=== PATIENT | female | born 1990 | race Caucasian/White ===

== ENCOUNTER 2020-12-12 16:37 | Emergency (ER) | payer OTHER ==
[~2020-12-12] VITALS: Ht 175.3 cm; Wt 84.4 kg
[~2020-12-12 16:37] MED LIST: KEFLEX500 MG PO; NAPROSYN500 MG PO; NORCO 5-325 TA1 EACH PO; PRENATAL TABLE1 EAC3 PO; ZOFRAN ODT4 MG PO
[2020-12-12] MEDS ORDERED: HYDROXYZINE HCL25 MG PO (17:11)
[2020-12-12] MEDS ORDERED: FLUOXETINE HCL20 MG PO (17:11)
[2020-12-12] MEDS ORDERED: PRILOSEC OTC20 MG PO (19:26)
[2020-12-12] MEDS ORDERED: ZOFRAN4 MG PO (19:26)
[2020-12-12] MEDS ORDERED: BACTRIM DS TAB1 EACH PO (19:26)
== END 2020-12-12 20:08 | disposition home or self-care (01) ==
LOC: ED 16:37
DX: K21.9 Gastro-esophageal reflux disease without esophagitis (principal); N39.0 Urinary tract infection, site not specified; E87.6 Hypokalemia; Z79.899 Other long term (current) drug therapy
CPT/HCPCS: 80053; 81001; 83690; 83735; 84703; 85025; 96374; 96375; 99284-25; J2405; J2765; J7030

== ENCOUNTER 2022-05-23 06:03 | Emergency (ER) | payer OTHER ==
[~2022-05-23] VITALS: Ht 175.3 cm; Wt 66.0 kg
[~2022-05-23 06:03] MED LIST changes: +BACTRIM DS TAB1 EACH PO; +FLUOXETINE HCL20 MG PO; +HYDROXYZINE HCL25 MG PO; +PRILOSEC OTC20 MG PO; +ZOFRAN4 MG PO
[2022-05-23] MEDS ORDERED: ONDANSETRON ODT8 MG PO (07:49)
== END 2022-05-23 08:04 | disposition home or self-care (01) ==
LOC: ED 06:03
DX: R11.2 Nausea with vomiting, unspecified (principal); B34.9 Viral infection, unspecified; Z79.899 Other long term (current) drug therapy
CPT/HCPCS: 36415; 71045; 80053; 84703; 85025; 87502; 96374; 96375; 99284-25; J2405; J7121; U0003

== ENCOUNTER 2022-07-03 00:07 | Emergency (ER) | payer OTHER ==
[~2022-07-03] VITALS: Ht 175.3 cm; Wt 68.7 kg
[~2022-07-03 00:07] MED LIST changes: +ONDANSETRON ODT8 MG PO
[2022-07-03] MEDS ORDERED: ONDANSETRON ODT8 MG PO (02:06)
== END 2022-07-03 02:30 | disposition home or self-care (01) ==
LOC: ED 00:07
DX: R10.11 Right upper quadrant pain (principal)
CPT/HCPCS: 36415; 74177; 80053; 84703; 85025; 96375; 99284-25; A9270; J2270; J2405; J2550; J7121; Q9967

== ENCOUNTER 2023-12-06 06:14 | Emergency (ER) | payer OTHER ==
[~2023-12-06] VITALS: Ht 175.3 cm; Wt 80.8 kg
[~2023-12-06 06:14] MED LIST changes: +PRAZOSIN HCL1 MG PO; +PROTONIX40 MG PO
[2023-12-06] MEDS ORDERED: TRAZODONE HCL50 MG PO (06:25)
[2023-12-06] MEDS ORDERED: droPERidol 5 MG/2 ML VIAL IV ONE (06:30)
[2023-12-06] MEDS ORDERED: LACTATED RINGER'S 1,000 ML IV ONE (06:30)
[2023-12-06] MEDS ORDERED: FAMOTIDINE 20 MG/ 2 ML VIAL IV ONE (06:30)
[2023-12-06 06:32] LABS: BASOPHILS 0.4 % (0-2); EOSINOPHILS 0.2 % (0-6); HEMOGLOBIN 15.3 g/dL (12.0-18.0); LYMPHOCYTES 17.2 % (24-44); MCH 30.5 (27-36); MCV 89.8 fl (81-99); MONOCYTES 2.6 % (0-12); NEUTROPHILS 79.6 % (39-80); PLATELET COUNT 405 K/uL (140-440); RDW 13.3 (10.5-15.0)
[2023-12-06] MEDS ORDERED: KETOROLAC TROMETHAMINE 30 MG/ML VIAL IV ONE (06:45)
[2023-12-06 06:51] LABS: ALBUMIN 3.8 g/dL (3.4-5.0); ALBUMIN/GLOBULIN RATIO 1.03 (1.1-2.4); ANION GAP 21.7 (7-21); BILIRUBIN, TOTAL 0.9 ng/dL (0.2-1.0); BUN/CREATININE RATIO 13.88 (6.0-28.6); CALCIUM 8.7 mg/dL (8.5-10.1); CREATININE, SERUM 1.08 mg/dL (0.55-1.02); MAGNESIUM 1.9 mg/dL (1.8-2.4); POTASSIUM 3.7 mmol/L (3.5-5.1); PROTEIN, TOTAL 7.5 g/dL (6.4-8.2)
[2023-12-06 07:07] LABS: INR 1.01 (0.80-1.30); PROTIME 12.9 Sec (11.2-14.2)
[2023-12-06 07:10] LABS: BILIRUBIN, URINE NEGATIVE (negative); BLOOD/HGB, URINE NEGATIVE (Negative); KETONE, URINE NEGATIVE (Negative); LEUK ESTERASE, URINE NEGATIVE (negative); NITRITE, URINE NEGATIVE (negative)
[2023-12-06 07:31] LABS: AMPHETAMINES, URINE NEGATIVE (NEGATIVE); BARBITURATES, URINE NEGATIVE (NEGATIVE); BENZODIAZEPINE, URINE NEGATIVE (NEGATIVE); BUPRENORPHINE, URINE NEGATIVE (NEGATIVE); CANNABINOID, URINE POSITIVE (NEGATIVE); COCAINE, URINE NEGATIVE (NEGATIVE); ECSTASY, URINE NEGATIVE (NEGATIVE); FENTANYL, URINE NEGATIVE (NEGATIVE); METHADONE, URINE NEGATIVE (NEGATIVE); OPIATES, URINE NEGATIVE (NEGATIVE); OXYCODONE, URINE NEGATIVE (NEGATIVE); PHENCYCLIDINE, URINE NEGATIVE (NEGATIVE)
[2023-12-06 09:03] VITALS: BP 127/74
== END 2023-12-06 09:04 | disposition home or self-care (01) ==
LOC: ED 06:14
PROVIDERS: Internal Medicine
DX: R10.13 Epigastric pain (principal); R10.11 Right upper quadrant pain; R11.2 Nausea with vomiting, unspecified; G89.29 Other chronic pain; D72.829 Elevated white blood cell count, unspecified; F32.A Depression, unspecified; Z79.899 Other long term (current) drug therapy
CPT/HCPCS: 36415; 74177; 80053; 80307; 81003; 83690; 83735; 84703; 85025; 85610; 96361; 96375; 99284-25; J1790; J1885; J7121; Q9967

== ENCOUNTER 2024-03-10 11:04 | Emergency (ER) | payer OTHER ==
[~2024-03-10] VITALS: Ht 175.3 cm; Wt 79.4 kg
[~2024-03-10 11:04] MED LIST changes: +TRAZODONE HCL50 MG PO
[2024-03-10] MEDS ORDERED: AMOXICILLIN/CLAVULANATE K 875 MG TAB PO ONE (11:30)
[2024-03-10] MEDS ORDERED: LIDOCAINE/RACEPINEP/TETRACAINE 3 ML SYR TOP ONE (11:30)
[2024-03-10] MEDS ORDERED: AMOX TR-K CLV1 EAC1 PO (12:51)
[2024-03-10 13:04] VITALS: BP 132/101
== END 2024-03-10 13:05 | disposition home or self-care (01) ==
LOC: ED 11:04
DX: S01.25XA Open bite of nose, initial encounter (principal); W54.0XXA Bitten by dog, initial encounter; Z79.899 Other long term (current) drug therapy
CPT/HCPCS: 12011; 99283-25

== ENCOUNTER 2024-07-25 17:16 | Emergency (ER) | payer OTHER ==
[~2024-07-25] VITALS: Ht 175.3 cm; Wt 78.9 kg
[~2024-07-25 17:16] MED LIST changes: +AMOX TR-K CLV1 EAC1 PO
[2024-07-25 17:45] LABS: BASOPHILS 0.6 % (0-2); EOSINOPHILS 0.4 % (0-6); HEMATOCRIT 46.6 % (35.0-50.0); HEMOGLOBIN 16.6 g/dL (12.0-18.0); MCH 33.1 (27-36); MCHC 35.6 g/dl (30-36); MONOCYTES 9.3 % (0-12); NEUTROPHILS 64.7 % (39-80); PLATELET COUNT 288 K/uL (140-440); RBC 5.02 M/ul (4.3-5.7); RDW 12.6 (10.5-15.0)
[2024-07-25 18:02] LABS: ALBUMIN 4.6 g/dL (3.4-5.0); ANION GAP 24.3 (7-21); BILIRUBIN, TOTAL 1.9 ng/dL (0.2-1.0); BUN/CREATININE RATIO 14.13 (6.0-28.6); CALCIUM 10.1 mg/dL (8.5-10.1); CREATININE, SERUM 0.92 mg/dL (0.55-1.02); MAGNESIUM 2.3 mg/dL (1.8-2.4); POTASSIUM 3.3 mmol/L (3.5-5.1); PROTEIN, TOTAL 9.2 g/dL (6.4-8.2)
[2024-07-25] MEDS ORDERED: LORazepam 2 MG/ML VIAL IV PRN (18:15)
[2024-07-25] MEDS ORDERED: SODIUM CHLORIDE 0.9% 1,000 ML IV ONE (18:15)
[2024-07-25] MEDS ORDERED: NALTREXONE HCL50 MG PO (19:48)
[2024-07-25] MEDS ORDERED: CHLORDIAZEPOXID25 MG PO (19:48)
[2024-07-25] MEDS ORDERED: LORazepam 1 MG HOME.PACK PO ONE (20:00)
[2024-07-25 20:10] VITALS: BP 143/107
--- NOTE | 2024-07-26 10:17 | EKG ---
[facility] [address] [facility] [place], [place] [address] Signed Sinus tachycardia Otherwise normal ECG No previous ECGs available Confirmed by Bertha Jennings DO ([id number]) on 07/26/2024 10:17:36 AM Electronically Signed By: BERTHA JENNINGS DO 07/26/24 1017 PATIENT NAME: JENNY DAWKINS Electrocardiogram DATE OF : 88 PHYSICIAN: BERTHA JENNINGS DO REPORT #: [id number] REPORT IS CONFIDENTIAL AND NOT TO BE RELEASED WITHOUT AUTHORIZATION
== END 2024-07-25 20:17 | disposition home or self-care (01) ==
LOC: ED 17:16
PROVIDERS: Emergency Medicine
DX: F10.139 Alcohol abuse with withdrawal, unspecified (principal); Z79.899 Other long term (current) drug therapy
CPT/HCPCS: 36415; 80053; 80307; 83735; 84484; 85025; 93005; 93010; 96374; 99285-25; G0480; J2060; J7030

== ENCOUNTER 2025-03-12 08:12 | Inpatient (IN) | payer OTHER ==
[2025-03-12] VITALS (10 sets, daily range): BP systolic 103–137; BP diastolic 87–99
[~2025-03-12] VITALS: Ht 175.3 cm; Wt 83.0 kg
[~2025-03-12 08:12] MED LIST changes: +CHLORDIAZEPOXID25 MG PO; +NALTREXONE HCL50 MG PO
[2025-03-12] MEDS ORDERED: MULTIVITAMINS THERAPEUTIC 1 EA TAB PO ONE (08:30)
[2025-03-12] MEDS ORDERED: LORazepam 2 MG/ML VIAL IV ONE (08:30)
[2025-03-12] MEDS ORDERED: SODIUM CHLORIDE 0.9% 1,000 ML IV ONE ×2 (08:30→10:15)
[2025-03-12 08:31] LABS: BASOPHILS 0.4 % (0.1-1.2); EOSINOPHILS 0.4 % (0.7-5.8); LYMPHOCYTES 20.2 % (19.3-51.7); MCH 32.3 PG (25.6-32.2); MCHC 36.4 g/dL (32.2-35.5); MCV 88.7 fL (79.4-94.8); MONOCYTES 8.9 % (4.7-12.5); NEUTROPHILS 69.8 % (34.0-71.1); RBC 5.39 M/uL (3.93-5.22)
[2025-03-12 08:49] LABS: ALT (SGPT) 64 U/L (14-59); AST (SGOT) 50 U/L (15-37); GLOMERULAR FILTRATION RATE,EST 71 mL/min (>60); PROTEIN, TOTAL 9.3 g/dL (6.4-8.2); UREA NITROGEN 24 mg/dL (7-18)
[2025-03-12] MEDS ORDERED: SODIUM CHLORIDE 0.45% 1,000 ML IV SCH (11:15)
[2025-03-12] MEDS ORDERED: CHLORDIAZEPOXIDE 25 MG CAP PO PRN (11:30)
[2025-03-12 11:37] LABS: BLOOD/HGB, URINE MODERATE (Negative); KETONE, URINE >=80 (Negative); LEUK ESTERASE, URINE TRACE (negative); NITRITE, URINE POSITIVE (negative)
[2025-03-12 11:44] LABS: BACTERIA, URINE 4+ /hpf (negative); CASTS, URINE NONE SEEN \\lpf; CRYSTALS, URINE NONE SEEN (0-1+); EPITHELIAL CELLS, URINE SQUAMOUS 1+ /lpf (0-1+); REFLEX CULTURE, URINE Yes (No)
[2025-03-12] MEDS ORDERED: PHARMACY RENAL DOSE ADJUSTMENT 1 DOSE MISC PO SCH (12:00)
--- NOTE | 2025-03-12 13:00 | NUR ---
PT ARRIVED TO FLOOR FROM ED VIA STRETCHER BY ED STAFF. PT ABLE TO STAND AND GET INTO BED INDEPENDENTLY. IV FLUIDS INFUSING. PT NEEDED TO USE COMMODE IMMEDIATELY UPON ARRIVING TO FLOOR, ASSISTED TO COMMODE. ALL PT CARE NEEDS MET AT THIS TIME, DENIES ANY NEEDS, CALL LIGHT WITHIN REACH.
[2025-03-12] MEDS ORDERED: HYDROXYZINE HCL50 MG PO (13:36)
[2025-03-12] MEDS ORDERED: NALTREXONE HCL50 MG PO (13:36)
[2025-03-12] MEDS ORDERED: PIPERACILLIN/TAZOBACTAM 4.5 GM in DEXTROSE 5% 100 ML IV SCH (14:00)
--- NOTE | 2025-03-12 14:26 | NUR ---
UR CLINICAL REVIEW: ELLIE-PER MCG REVIEW MEETS INPT FOR ABD PAIN/POSS PANCREATITIS WITH NEED FOR IV HYDRATION, SURGICAL CONSULT AND MONITORING FOR ALCOHOL WITHDRAWL [facility]O INPT 03/12/25 @ 111 ORDER MATCHES REG CLINICALS FAXED TO [facility] FOR AUTH REVIEW 03/13/25 DC SUMMARY
--- NOTE | 2025-03-12 15:00 | NUR ---
TO CHLORAHEXADINE WIPE DOWN COMPLETE. LINEN/GOWN CHANGED. PT BACK IN BED, DENIES ANY NEEDS. PATIENT REPORTS 2/10 ABDOMINAL PAIN. PT SCORE FOR CIWA WAS 1, NO ATIVAN NEEDED. PT WAS STEADY ON FEET WHEN GETTING UP FOR WIPE DOWN. IVF/IV ABX INFUSING ORDERED. ALL PT CARE NEEDS MET AT THIS TIME. CALL LIGHT WITHIN REACH.
--- NOTE | 2025-03-12 15:10 | NUR ---
PATIENT ALERT AND ORIENTED IN BED. STATES SHE LIVES IN HOUSE. HAS NO DME. PATIENT IS ABLE TO DRIVE AT BASELINE. STATES SHE IS ABLE TO AFFORD UTILITIES AND FOOD/MEDICATIONS WITHOUT AN ISSUE. PATIENT HAS A HISTORY OF ALCOHOL ABUSE AND WAS SUCCESSFULLY TREATED IN INPATIENT SETTING AND ABLE TO MAINTAIN SOBRIETY FOR 2.5 YEARS. STATES SHE IS OPEN TO [facility] COMING INTO FACILITY TO SPEAK WITH HER REGARDING TREATMENT OPTIONS. CALLED [facility] AND THEY CAN BE TO FACILITY TO SEE PATIENT WITHIN 30 MINUTES. [facility] CARD PROVIDED TO PATIENT, INFORMED HER A PEER WILL BE TO FACILITY TO SEE HER. NO OTHER CM NEEDS AT THIS TIME.
[2025-03-12] MEDS ORDERED: SEVOFLURANE 250 ML BTL INH ONE ×2 (15:19→15:26)
--- NOTE | 2025-03-12 17:49 | NUR ---
medications reconciled with pharmacy records
--- NOTE | 2025-03-12 18:09 | NUR ---
PT INFORMED SURGERY SHOULD BE UP SHORTLY TO GET HER. FAMILY PRESENT IN THE ROOM. IV SALINE LOCKED. LR HUNG FOR SURGERY. PT DENIES PAIN. ALL PT CARE NEEDS MET, CALL LIGHT WITHIN REACH. OFFERED BATHROOM, PT DECLINED NEED
[2025-03-12] MEDS ORDERED: MIDAZOLAM HCL 2 MG/2 ML VIAL ONE (18:24)
[2025-03-12] MEDS ORDERED: DEXAMETHASONE SOD PHOS 4 MG/ML VIAL ONE (18:24)
[2025-03-12] MEDS ORDERED: ACETAMINOPHEN 1,000 MG/100 ML VIAL ONE (18:24)
[2025-03-12] MEDS ORDERED: LIDOCAINE HCL 2% 5 ML SDV ONE (18:24)
[2025-03-12] MEDS ORDERED: SUCCINYLCHOLINE IN 0.9% NACL 200 MG/10 ML SYRINGE ONE (18:24)
[2025-03-12] MEDS ORDERED: SUGAMMADEX SODIUM 200 MG/2 ML ML ONE (18:24)
[2025-03-12] MEDS ORDERED: KETOROLAC TROMETHAMINE 30 MG/ML VIAL ONE (18:24)
[2025-03-12] MEDS ORDERED: ROCURONIUM BROMIDE 50 MG/5 ML SYR ONE (18:24)
[2025-03-12] MEDS ORDERED: fentaNYL citrate 100 MCG/2 ML VIAL ONE (18:25)
[2025-03-12] MEDS ORDERED: LIDOCAINE HCL 2% 20 MG/ML VIAL INJ ONE (18:25)
--- NOTE | 2025-03-12 18:27 | NUR ---
PER SKIP, WOULD LIKE REPEAT CHEM PANEL. CALL TO MD, TELEPHONE FOR BMP. ORDERS INPUT STAT THEY ARE HERE TO GET PATIENT.
--- NOTE | 2025-03-12 18:41 | NUR ---
PT LEFT FLOOR WITH SURGERY TEAM VIA BED.
[2025-03-12 18:47] LABS: GLOMERULAR FILTRATION RATE,EST 110.0 mL/min (>60); UREA NITROGEN 16.0 mg/dL (7-18)
[2025-03-12] MEDS ORDERED: MULTIVITAMINS THERAPEUTIC 1 EA TAB PO SCH (18:50)
[2025-03-12] MEDS ORDERED: POTASSIUM CHLORIDE 40 MEQ,LIDOCAINE HCL 1% 40 MG in DEXTROSE 5% 250 ML IV ONE (19:15)
[2025-03-12] MEDS ORDERED: POTASSIUM CHLORIDE 10 MEQ/100 ML BAG IV SCH (19:30)
[2025-03-12] MEDS ORDERED: POTASSIUM CHLORIDE 40 MEQ in DEXTROSE 5% 250 ML IV ONE (19:30)
--- NOTE | 2025-03-12 19:30 | NUR ---
handoff report received from RISHI Murphy. patient off unit in surgery at this time.
[2025-03-12] MEDS ORDERED: HYDROmorphone HCL 1 MG/ML SYR IV PRN (19:45)
[2025-03-12] MEDS ORDERED: NALOXONE HCL 0.4 MG SYR IV PRN (19:45)
[2025-03-12] MEDS ORDERED: fentaNYL citrate 50 MCG/ML SDV IV PRN (19:45)
[2025-03-12] MEDS ORDERED: IBLOOD GLUCOSE TEST STRIP 1 EA TEST VI PRN (19:45)
[2025-03-12] MEDS ORDERED: PROCHLORPERAZINE EDISYLATE 10 MG/2 ML VIAL IV PRN (19:45)
--- NOTE | 2025-03-12 20:37 | NUR ---
handoff report received from MOBILE BATTERY TECHNICIAN Earl. Patient awake in bed. no signs of acute distress noted at this time. patient family remains at bedside. This RN and RISHI Rincon remain in room.
[2025-03-12] MEDS ORDERED: HYDROCODONE/ACETA 5/325 TAB PO PRN (20:45)
[2025-03-12] MEDS ORDERED: KETOROLAC TROMETHAMINE 15 MG/ML VIAL IV PRN (20:45)
[2025-03-12] MEDS ORDERED: MORPHINE SULFATE 4 MG/ML VIAL IV PRN (20:45)
--- NOTE | 2025-03-12 20:53 | NUR ---
03/12/252052 Maira Evans 2013- PT TRANSFERED FROM OR TO CCU ROOM 126. BEDSIDE REPORT RECIEVED FROM AYO NUNEZ. VITAL SIGNS OBTAINED. PT BED IS LOWERED. SURGICAL SITES ARE CDI. PT HAS AN ORAL AIRWAY IN PLACE WITH 6L OF O2 VIA MASK. PT IS NONREACTIVE TO VERBAL AND TACTILE STIMULI. 2014- ORAL AIRWAY REMOVED. 6L OF O2 VIA MASK LEFT IN PLACE. PT RESPONDS "YES" TO QUESTIONS AND IS ABLE TO FOLLOW BASIC COMMANDS TO OPEN HER MOUTH FOR ORAL AIRWAY REMOVAL. 2019- PT IS DROWSY AND FALLS ASLEEP EASILY. SHE WAKES TO VERBAL STIMULI AND DENIES PAIN AND NAUSEA. PT RESTING WITH EYES CLOSED, WITH NO APPARENT DISTRESS NOTED. 2022- PT WAKES AND IS TALKING WITH FAMILY AT THE BEDSIDE. 2025- O2 REMOVED AT THIS TIME. PT IS ABLE TO MAINTAIN O2 SATS ABOVE 95%. PT RESTING WITH EYES CLOSED. 2031- PT BEGINS COUGHING. HEAD OF BED RAISED. PT EDUCATED ABOUT SPLINTING WITH A PILLOW AND DOES DEMONSTRATES BACK TO RN'S HOW SHE WILL DO THAT. PT REPORTS 2/10 PAIN AFTER COUGHING. 2036- BEDSIDE REPORT GIVEN TO RISHI BECK AND RISHI STOCKTON. ALL QUESTIONS AND CONCERNS ANSWERED. SURGICAL SITES ASSESSED TOGETHER AND ARE CDI.
[2025-03-12] MEDS ORDERED: HEParin SOD (PORCINE) 5,000 UNIT/ML SDV SUB-Q SCH (21:00)
[2025-03-12] MEDS ORDERED: FERROUS SULFATE 220 MG/5 ML ML PO SCH (21:00)
--- NOTE | 2025-03-12 21:00 | NUR ---
PATIENT ASSESSMENT COMPLETE. PATIENT SITTING UP IN BED AT THIS TIME. PATIENT ALERT AND ORIENTED. PATIENT ON ROOM AIR, LUNG SOUNDS CLEAR, RESPIRATIONS EVEN AND UNLABORED. HR 70'S-80'S, NSR. X3 LAPRASCOPIC SITES NOTED TO THE ABDOMEN. ALL SURGICAL SITES COVERED WITH DERMABOND AND CLOSED W/ SUTURES AND OPEN TO AIR. ABDOMINAL TENDERNESS NOTED, BOWEL SOUNDS ACTIVE IN ALL QUADRANTS. PATIENT DENIES NAUSEA AT THIS TIME. PATIENT RATES PAIN 1/10 IN THE ABOMEN. PATIENT DUE TO VOID. PATIENT ABLE TO MOVE ALL EXTREMITIES W/O DIFFICULTY. PATIENT DENIES FEELING ANXIOUS AT THIS TIME. VITAL SIGNS STABLE. SCDS IN PLACE. FAMILY REMAINS AT BEDSIDE.
--- NOTE | 2025-03-12 22:15 | NUR ---
IN PATIENT ROOM. PATIENT C/O ABDOMINAL PAIN AND NAUSEA. PATIENT MEDICATED W/ PRN PAIN MEDICATION AND PRN NAUSEA MEDICATION PER EMAR. VITAL SIGNS STABLE. THIS RN AND EBONY RN REMAIN IN ROOM AT THIS TIME.
--- NOTE | 2025-03-12 22:35 | NUR ---
PATIENT ASSISTED UP TO THE BATHROOM BY THIS RN AND RISHI BECK. PATIENT VOIDED WELL W/O DIFFICULTY. PATIENT C/O DIZZINESS UPON RETURN TO BED, PATIENT BACK IN BED AND STATES DIZZINESS HAS SUBSIDED AT THIS TIME. WHILE PATIENT AMBULATED TO BATHROOM, HR WAS NOTED TO GET HIGH 140. HR BACK TO 90'S-100'S WHILE IN BED. PATIENT DENIES ANY OTHER NEEDS AT THIS TIME. VITAL SIGNS STABLE. CALL LIGHT IN REACH.
--- NOTE | 2025-03-12 23:01 | NUR ---
NEW IV POTASSIUM BAG ADMINISTERED PER EMAR. PATIENT RESTING IN BED. RESPIRATIONS EVEN AND UNLABORED. NO EVIDENCE OF ACUTE DISTRESS. VITAL SIGNS STABLE. CALL LIGHT IN REACH
[2025-03-13] VITALS (24 sets, daily range): BP systolic 83–132; BP diastolic 55–99
--- NOTE | 2025-03-13 00:18 | NUR ---
POTASSIUM REPLACEMENT COMPLETED PER EMAR. LAB IN ROOM FOR POTASSIUM REDRAW.
--- NOTE | 2025-03-13 01:08 | NUR ---
PATIENT RESTING IN BED W/ EYES CLOSED. RR EVEN AND UNLABORED. VITAL SIGNS STABLE. NO EVIDENCE OF ACUTE DISTRESS. CALL LIGHT IN REACH.
--- NOTE | 2025-03-13 01:47 | NUR ---
IV ABX COMPLETE PER EMAR. PT ASSISTED UP TO BATHROOM, SBA. PATIENT DENIES FEELING LIGHTHEADED OR DIZZY. HR NOTED TO GET UP TO 165 W/ AMBULATION. PATIENT BACK TO BED. PATIENT C/O PAIN 08/19, PATIENT REQUESTING PAIN MEDICATION AT THIS TIME. PATIENT DENIES NAUSEA. VITAL SIGN STABLE. WARM BLANKET PROVIDED. CALL LIGHT IN REACH.
--- NOTE | 2025-03-13 02:30 | NUR ---
PATIENT GIVEN PRN PAIN MEDICATION PER EMAR. NO FURTHER NEEDS. CALL LIGHT IN REACH
--- NOTE | 2025-03-13 03:24 | NUR ---
PATIENT RESTING IN BED W/ EYES CLOSED. RR EVEN AND UNLABORED. NO EVIDENCE OF ACUTE DISTRESS. IVF RUNNING PER EMAR. VITAL SIGNS STABLE. CALL LIGHT IN REACH
--- NOTE | 2025-03-13 04:23 | NUR ---
IN PATIENT ROOM. PATIENT C/O 01/16 ABDOMINAL PAIN. PRN PAIN MEDICATION ADMINISTERED PER EMAR. PATIENT PROVIDED WATER AND JELLO. PATIENT REPOSITIONED IN BED. IVF RUNNING PER EMAR. PATIENT DENIES FURTHER NEEDS. VITAL SIGNS STABLE, CALL LIGHT IN REACH.
[2025-03-13 05:31] LABS: BASOPHILS 0.3 % (0.1-1.2); EOSINOPHILS 0 % (0.7-5.8); LYMPHOCYTES 11.2 % (19.3-51.7); MCH 32.8 PG (25.6-32.2); MCHC 35.4 g/dL (32.2-35.5); MCV 92.7 fL (79.4-94.8); MONOCYTES 6.5 % (4.7-12.5); NEUTROPHILS 81.5 % (34.0-71.1); RBC 3.02 M/uL (3.93-5.22)
[2025-03-13 05:43] LABS: GLOMERULAR FILTRATION RATE,EST 118 mL/min (>60); UREA NITROGEN 13 mg/dL (7-18)
[2025-03-13 06:00] LABS: INR 1.07 (0.80-1.30); PROTIME 13.2 Sec (11.2-14.2)
[2025-03-13] MEDS ORDERED: LACTATED RINGER'S 1,000 ML IV SCH (06:00)
--- NOTE | 2025-03-13 06:00 | NUR ---
0525: patient complains of feeling nauseous. patient noted to be pale and diaphoretic. patient HR 110-140's; ST. patient blood pressure 95/62 (73). patient abdomen noted to be more distended. lap sites x3 noted to have purplish discoloration around insertion sites. patient less responsive, does not respond to verbal stimuli. patient eyes open but glazed over. 0527: rapid response called. ER doctor, senior housekeeper, float RN, ER nurse, lab, CCU charge nurse at bedside. EKG obtained. ER doctor did beside abd ultrasound; noted significant for free fluid in RLQ. 0529: Dr Cartwright called and updated on patient. 1L LR fluid bolus ordered. 0535: Dr Mello updated. no new orders 0545: Dr Mello called by Sonia and provided update. new order received for Abd/pelvic CT. 0550: patient off unit and taken to CT with this RN and Christina RN. 0600: patient back on unit in room 126. this RN and Christina RN remain at bedside.
--- NOTE | 2025-03-13 06:06 | NUR ---
DR WALTON AT PATIENT BEDSIDE.
--- NOTE | 2025-03-13 06:32 | NUR ---
ELIDIA CALLED TO PROVIDE UPDATE ON PATIENT'S IMAGING REPORT. ORDERS RECEIVED FOR TXA. VERIFIED PATIENT WAS TYPE AND SCREEN FOR BLOOD PRODUCTS; NOT TO TRANSFUSE AT THIS TIME.
[2025-03-13 06:37] LABS: ABO B; ANTIBODY SCREEN NEGATIVE; RH POSITIVE
[2025-03-13] MEDS ORDERED: TRANEXAMIC ACID IN NACL,ISO-OS 1,000 MG/100 ML PIGGYBACK IV ONE (06:45)
[2025-03-13 07:04] LABS: ABO B; RH POSITIVE
[2025-03-13 07:04] LABS: IS CROSSMATCH COMPATIBLE
--- NOTE | 2025-03-13 07:12 | NUR ---
PT CALL LIGHT ANSWERED. PT C/O NAUSEA. PATIENT VOMITIED 100 ML OF DARK BROWN EMESIS. THIS RN AND RISHI FOLEY IN ROOM. PRN ZOFRAN ADMINISTERED PER EMAR. PATIENT SITTING UP IN BED. ORAL SWAB PROVIDED. MOTHER AT BEDSIDE. PATIENT DENIES FURTHER NEEDS. THIS RN AND RISHI FOLEY REMAIN IN ROOM.
--- NOTE | 2025-03-13 07:32 | NUR ---
PATIENT REMAINS NAUSEAOUS WITH ACTIVE DRY HEAVING; DISCUSSED WITH . ADDITIONAL PRN ORDERS RECEIVED.
[2025-03-13] MEDS ORDERED: PROCHLORPERAZINE EDISYLATE 10 MG/2 ML VIAL IV PRN (07:45)
[2025-03-13 08:10] LABS: BASOPHILS 0.2 % (0.1-1.2); EOSINOPHILS 0 % (0.7-5.8); LYMPHOCYTES 9.8 % (19.3-51.7); MCH 32.8 PG (25.6-32.2); MCHC 35.6 g/dL (32.2-35.5); MCV 92.2 fL (79.4-94.8); MONOCYTES 6.3 % (4.7-12.5); NEUTROPHILS 83.2 % (34.0-71.1); RBC 2.56 M/uL (3.93-5.22)
--- NOTE | 2025-03-13 08:10 | NUR ---
IN PATIENT'S ROOM FOR AM ASSESSMENT. PATIENT AWAKENS EASILY AND IS CALM. HR IN THE 80-90s AND BP IN THE 120s/80s. ABD ASSESSED AND BRUISING NOTED AROUND LAP SITES. PT RATES PAIN 3/10 IN RIGHT SIDE OF ABD, AND WORSE WITH A DEEP BREATH. LUNGS CTA ON ROOM AIR. PLAN DISCUSSED WITH PATIENT. BLOOD DRAWN FROM IV SITE LEFT AC FOR REPEAT CBC. PT TO RECEIVE ONE UNIT OF PRBCs PER DR. WALTON WHO IS NOW AT BEDSIDE. PT ALSO TO GET SOME POTASSIUM REPLACEMENT. CIWA 6. CONTINUE TO MONITOR.
[2025-03-13] MEDS ORDERED: SODIUM CHLORIDE 0.9% 1,000 ML IV SCH (08:15)
[2025-03-13 08:27] LABS: ALT (SGPT) 29.0 U/L (14-59); AST (SGOT) 30.0 U/L (15-37); GLOMERULAR FILTRATION RATE,EST 118.0 mL/min (>60); PROTEIN, TOTAL 4.8 g/dL (6.4-8.2); UREA NITROGEN 13.0 mg/dL (7-18)
--- NOTE | 2025-03-13 08:39 | NUR ---
1 UNIT OF PRBCs STARTED AT 0821 INTO LEFT AC SITE AT 120 ML/HR FOR THE FIRST 30 ML(15 MINS). RATE WAS THEN INCREASED TO 175 ML/HR AND PATIENT IS TOLERATING THIS WELL THUS FAR. IVF WERE CHANGED FROM 1/2 NS TO NS AT 125 ML/HR. IV ZOSYN INFUSING. PT TO RECEIVE 40 MEQ OF POTASSIUM. PT ASKING FOR PAIN MEDICATION.
[2025-03-13] MEDS ORDERED: LIDOCAINE HCL 1% 30 ML SDV ONE ×2 (08:58→09:18)
[2025-03-13] MEDS ORDERED: BUPIVACAINE HCL 0.5% 30 ML VIAL ONE (08:58)
[2025-03-13] MEDS ORDERED: MULTIVITAMINS THERAPEUTIC 1 EA TAB PO SCH (09:00)
[2025-03-13] MEDS ORDERED: FLUOXETINE HCL 20 MG CAP PO SCH (09:00)
[2025-03-13] MEDS ORDERED: POTASSIUM CHLORIDE 40 MEQ in DEXTROSE 5% 250 ML IV ONE (09:00)
[2025-03-13] MEDS ORDERED: MAGNESIUM SULFATE 2 GM/50 ML BAG IV ONE ×2 (09:00→18:15)
--- NOTE | 2025-03-13 09:00 | NUR ---
INTO SEE PATIENT. PATIENT GOING BACK TO THE OR TODAY. NO CM NEEDS AT THIS TIME.
[2025-03-13] MEDS ORDERED: LIDOCAINE HCL 2% 5 ML SDV ONE (09:13)
[2025-03-13] MEDS ORDERED: ROCURONIUM BROMIDE 50 MG/5 ML SYR ONE ×2 (09:13→11:48)
[2025-03-13] MEDS ORDERED: fentaNYL citrate 100 MCG/2 ML VIAL ONE (09:14)
--- NOTE | 2025-03-13 10:24 | EKG ---
[facility] [address] [facility] [place] [address] Signed Normal sinus rhythm Nonspecific T wave abnormality Abnormal ECG When compared with ECG of 25-JUL-2024 17:36, No significant change was found Confirmed by BRANDY WALTON MD ([id number]) on 03/13/2025 10:23:46 AM Electronically Signed By: BRANDY WALTON 03/13/25 1024 PATIENT NAME: JENNY DAWKINS SHA Electrocardiogram DATE OF : 88 PHYSICIAN: BRANDY WALTON REPORT #: [id number] REPORT IS CONFIDENTIAL AND NOT TO BE RELEASED WITHOUT AUTHORIZATION
--- NOTE | 2025-03-13 10:39 | NUR ---
FFP IN ROOM AND STARTED AT 1020 AT 120 ML/HR FOR THE FIRST 15 MINS (30ML) INTO LEFT AC IV SITE. PT TOLERATING WELL. SURGERY ARRIVES TO TAKE PATIENT TO SURGERY AT 1032. PT DID VOID ON BEDPAN 100 ML OF CONCENTRATED URINE PRIOR TO GOING TO SURGERY. PT'S S/O CARIDAD IN ROOM AT THIS TIME AND SHE WAS CONVERSIVE WITH HIM. IV POTASSIUM TAKEN OFF PUMP AND DISCONNECTED FROM PATIENT-GIVEN TO OR NURSE AND WILL BE RESUMED DOWN THERE. IVF ALSO TAKEN OFF PUMP. FFP INFUSING WIDE OPEN AT TIME OF DEPARTURE TO OR.
[2025-03-13] MEDS ORDERED: SODIUM CHLORIDE 0.9% 20 ML IV ONE ×2 (10:52→11:46)
[2025-03-13] MEDS ORDERED: PHENYLEPHRINE HCL 10 MG/ML VIAL ONE (10:52)
[2025-03-13] MEDS ORDERED: DEXAMETHASONE SOD PHOS 4 MG/ML VIAL ONE (10:54)
[2025-03-13] MEDS ORDERED: TRANEXAMIC ACID 1,000 MG/10 ML AMP ONE (11:42)
[2025-03-13] MEDS ORDERED: SUGAMMADEX SODIUM 200 MG/2 ML ML ONE (11:52)
--- NOTE | 2025-03-13 12:10 | NUR ---
PT NOT AVAILABLE FOR VISIT. PROVIDED PRAYER.
[2025-03-13] MEDS ORDERED: LACTATED RINGER'S 1,000 ML IV ONE (13:33)
--- NOTE | 2025-03-13 14:25 | NUR ---
03/13/25 1425 Maira Evans 1350- PT ARRIVES TO CCU ROOM 126 VIA BED FROM THE OR. BEDSIDE REPORT RECIEVED FROM AYO VELASCO. SURGICAL SITES ARE THE SAME LAST NIGHTS FRANK. PT HAS AN ORAL AIRWAY IN PLACE AND ON 6L OF O2 VIA MASK. VITAL SIGNS OBTAINED. BED IS LOCKED IN THE LOWEST POSITION. 1351- PT BEGINS REACHING TOWARD HER FACE AND PULLING. ORAL AIRWAY REMOVED AT THIS TIME. SOME SUCTION USED FOR ORAL SECRECTIONS.
[2025-03-13 14:55] LABS: BASOPHILS 0.1 % (0.1-1.2); EOSINOPHILS 0 % (0.7-5.8); LYMPHOCYTES 13.6 % (19.3-51.7); MCH 32.0 PG (25.6-32.2); MCHC 35.1 g/dL (32.2-35.5); MCV 91.1 fL (79.4-94.8); MONOCYTES 5.6 % (4.7-12.5); NEUTROPHILS 80.0 % (34.0-71.1); RBC 2.69 M/uL (3.93-5.22)
[2025-03-13 15:09] LABS: GLOMERULAR FILTRATION RATE,EST 120.0 mL/min (>60); UREA NITROGEN 9.0 mg/dL (7-18)
--- NOTE | 2025-03-13 15:29 | NUR ---
DR. BRENNER CALLED AND GIVEN AN UPDATE ON PT'S LABS. NO NEW ORDERS REC'D AT THIS TIME. PT RESTING AFTER COMING BACK FROM SURGERY AND HAVING ABDOMINAL BLOOD EVACUATED AND LAVAGE. H/H NOW 8.6/24.5 AFTER SURGERY AND AFTER 1 UNIT OF PRBCs AND 1 UNIT OF FFP. IVF CONTINUE AT 125 ML/HR. POTASSIUM IS NOW 4.8 AND PREVIOUS IV POTASSIUM THAT WAS STARTED BEFORE SURGERY BUT NOT FINISHED PRIOR TO HER GOING TO SURGERY WAS RESUMED MOMENTARILY BUT D/C AFTER SEEING LAB RESULTS. PT HAS S/O CARIDAD IN ROOM. BARROW DRAINING CONCENTRATED URINE.
--- NOTE | 2025-03-13 17:21 | NUR ---
PATIENT C/O 4/10 PAIN AND REQUESTING PAIN MEDS. PT OKAY TO HAVE CLEAR LIQUIDS. PRN MORPHINE GIVEN PER EMAR. PT'S MOTHER AND S/O IN ROOM. IVF CONTINUE AT 125 ML/HR.
[2025-03-13] MEDS ORDERED: PANTOPRAZOLE SODIUM 40 MG/10 ML VIAL IV SCH (18:48)
--- NOTE | 2025-03-13 19:35 | NUR ---
HANDOFF REPORT RECEIVED FROM RISHI COLINDRES. ALL QUESTIONS ANSWERED AT THIS TIME. PATIENT RESTING IN BED AT THIS TIME. CALL LIGHT IN REACH. VITAL SIGNS STABLE.
--- NOTE | 2025-03-13 20:51 | NUR ---
PATIENT REPORTS 4/10 PAIN IN ABD. ICE PACK PROVIDED AND PRN PAIN MEDS. PATIENT DENIED NAUSEA. TOLERATING CLEAR LIQUIDS. CALL LIGHT IN REACH.
--- NOTE | 2025-03-13 20:57 | NUR ---
labs drawn off peripheral IV site and handed to lab. Site WNL. no further needs at this time.
--- NOTE | 2025-03-13 21:00 | NUR ---
patient resting in bed. This RN and RISHI Rincon in room. Patient assessment complete. Patient alert and oriented. patient c/o feeling anxious at this time. patient denies visual or auditory hallucinations. HR 110's-120's. RR even and unlabored, Lung sounds clear. Alex intact and draining clear, yellow, concentrated urine. alex care complete. Abdomen soft, round, and non distended. x3 lap sites visualized and intact. bruising noted around x3 lap sites. patient c/o abdominal tenderness upon palpation. bowel sounds active. patient denies nausea. IV sites intact. IVF running per EMAR. Lab in room to draw per MD order. ice water provided. patient denies needs at this time. call light in reach. vital signs stable. bed alarm on. scds on.
[2025-03-13 21:03] LABS: BASOPHILS 0.2 % (0.1-1.2); EOSINOPHILS 0.6 % (0.7-5.8); LYMPHOCYTES 24.7 % (19.3-51.7); MCH 32.8 PG (25.6-32.2); MCHC 35.7 g/dL (32.2-35.5); MCV 91.7 fL (79.4-94.8); MONOCYTES 6.0 % (4.7-12.5); NEUTROPHILS 67.9 % (34.0-71.1); RBC 2.41 M/uL (3.93-5.22)
--- NOTE | 2025-03-13 21:10 | NUR ---
patient family visiting in room. no needs at this time. call light in reach.
[2025-03-13 21:13] LABS: GLOMERULAR FILTRATION RATE,EST 120.0 mL/min (>60); UREA NITROGEN 7.0 mg/dL (7-18)
[2025-03-13] MEDS ORDERED: DEXTROSE 5% 1,000 ML IV SCH (21:30)
--- NOTE | 2025-03-13 21:42 | NUR ---
SPOKE WITH DOCTOR CARRILLO ON THE PHONE, REVIEWED LABS AND SPOKE ABOUT PATIENT PLAN OF CARE. NEW ORDERS RECEIVED, ENTERED BY .
[2025-03-13] MEDS ORDERED: POTASSIUM CHLORIDE 10 MEQ TABCR PO ONE (21:45)
--- NOTE | 2025-03-13 22:13 | NUR ---
PATIENT MEDICATIONS ADMINISTERED PER EMAR. IV SITES INTACT AND WNL. ABDOMEN VISUALIZED. LAP SITES X3 INTACT W/ BRUSINING NOTED AROUND EACH LAP SITE. CIWA SCORE 8; PATIENT MEDICATED PER EMAR AND PER CIWA PROTOCOL. NEW ICE PACK PROVIDED. PATIENT DENIES NEEDS. VITAL SIGNS STABLE. CALL LIGHT IN REACH.
--- NOTE | 2025-03-13 22:59 | NUR ---
PATIENT USED CALL LIGHT REQUESTING A BREAK FROM HER SCD AND LEGS TO BE WIPED DOWN. PATIENT COMPLAINS OF FEELING ITCHY IN BILAT LEGS. PATIENT SCDS TAKEN OFF AND PROVIDED WITH A WIPE DOWN. NO FURTHER NEEDS AT THIS TIME. CALL LIGHT IN REACH.
[2025-03-14] VITALS (21 sets, daily range): BP systolic 93–145; BP diastolic 68–99
--- NOTE | 2025-03-14 00:30 | NUR ---
PATIENT RESTING IN BED W/ EYES CLOSED. RR EVEN AND UNLABORED. VITAL SIGNS STABLE CALL LIGHT IN REACH. BED ALARM ON.
--- NOTE | 2025-03-14 00:55 | NUR ---
DR CARRILLO ON THE UNIT. DISCUSSED PATIENT TEMP OF 99.1. ORDER RECEIVED FOR PRN TYLENOL PER EMAR.
[2025-03-14] MEDS ORDERED: ACETAMINOPHEN 325 MG TAB PO PRN (01:00)
--- NOTE | 2025-03-14 01:10 | NUR ---
PATIENT CALL LIGHT ANSWERED. PATIENT C/O 03/19 UPPER ABDOMINAL PAIN. PRN PAIN MEDICATION ADMINISTERED PER EMAR. PATIENT DENIES NAUSEA. IV SITES INTACT. WARM BLANKETS PROVIDED. TEMPERATURE TAKE 98.2 ORALLY. ABDOMEN VISUALIZED. MILD DISTENTION NOTED. X3 LAP SITES INTACT AND WELL APPROXIMATED. PATIENT DENIES NEEDS. VITAL SIGNS STABLE. BARROW INTACT AND DRAINING WELL. CALL LIGHT IN REACH. BED ALARM ON.
--- NOTE | 2025-03-14 01:38 | NUR ---
THIS RN IN ROOM. IV PUMP ALARMING, ALARM RESOLVED. PATIENT C/O FEELING ANXIOUS. PATIENT CONSOLED. PATIENT DENIES JAIN, NAUSEA, OR HALLUCINATIONS AT THIS TIME. IV SITES INTACT AND WNL. PATIENT NOW RATING ABDOMINAL PAIN 6/10 AFTER MEDICATION ADMINISTRATION PER EMAR. PATIENT DENIES NEEDS. VITAL SIGNS STABLE. CALL LIGHT IN REACH. BED ALARM ON.
--- NOTE | 2025-03-14 02:45 | NUR ---
patient resting in bed w/ eyes closed. RR even and unlabored. vital signs stable. call light in reach. bed alarm on
--- NOTE | 2025-03-14 03:45 | NUR ---
THIS RN AND RISHI BECK IN ROOM. PATIENT C/O UPPER ABDOMINAL PAIN TOWARDS THE LEFT SIDE OF THE UPPER ABOMEN A 09/16. PATIENT PROVIDED NEW ICE PACK TO APPLY TO ABDOMEN. IV SITES INTACT AND WNL. BARROW INTACT. ABDOMEN VISUALIZED. X3 LAP SITES INTACT. BRUISING NOTED AROUND ALL LAP SITES. MILD ABDOMINAL DISTENTION NOTED. PATIENT DENIES NAUSEA. PATIENT DENIES JAIN AND HALLUCINATIONS AT THIS TIME. FINE TREMORS NOTED UPON ASSESSMENT. CIWA SCORE 3. PATIENT DENIES NEEDS AT THIS TIME AND STATES DESIRE TO REST. CALL LIGHT IN REACH. BED ALARM ON. VITAL SIGNS STABLE AT THIS TIME.
--- NOTE | 2025-03-14 05:21 | NUR ---
PATIENT STATES PAIN 8/10 IN HER ABDOMEN. PRN PAIN MEDICATION GIVEN PER EMAR. PATIENT STATES PAIN BEING CONSTANT AND CRAMPY. PATIENT DENIES NAUSEA AT THIS TIME. VITAL SIGNS WNL. PATIENT PROVIDED WITH NEW ICE PACK. PATIENT DENIES FEELING DIZZY OR LIGHTHEADED AT THIS TIME. PATIENT HAS CALL LIGHT IN REACH.
--- NOTE | 2025-03-14 05:26 | NUR ---
LABS DRAWN OFF PATIENT PERIPHERAL IV SITE BY RISHI STOCKTON AND HANDED TO LAB. PATIENT LEFT AC IV SITE NOTED TO BE LEAKING. SITE DC. TIP INTACT. PATIENT HAS NO FURTHER NEEDS AT THIS TIME. CALL LIGHT IN REACH.
[2025-03-14 05:29] LABS: BASOPHILS 0.6 % (0.1-1.2); EOSINOPHILS 0.6 % (0.7-5.8); LYMPHOCYTES 34.9 % (19.3-51.7); MCH 32.2 PG (25.6-32.2); MCHC 35.4 g/dL (32.2-35.5); MCV 91.0 fL (79.4-94.8); MONOCYTES 6.1 % (4.7-12.5); NEUTROPHILS 57.4 % (34.0-71.1); RBC 2.45 M/uL (3.93-5.22)
[2025-03-14 05:44] LABS: GLOMERULAR FILTRATION RATE,EST 119 mL/min (>60); UREA NITROGEN 4 mg/dL (7-18)
--- NOTE | 2025-03-14 06:06 | NUR ---
IV ABX AND IVF INFUSING PER EMAR. PATIENT RATES PAIN 4/10 ABDOMINAL PAIN AFTER PRN PAIN MEDICATION ADMINISTRATION PER EMAR. IV SITES INTACT. ABDOMEN VISUALIZED. LAP SITES X3 INTACT. BARROW INTACT. PATIENT DENIES NEEDS. CALL LIGHT IN REACH.
--- NOTE | 2025-03-14 06:40 | NUR ---
UPDATED ON LABS; K+ REPLACEDMENT ORDERED.
--- NOTE | 2025-03-14 08:30 | NUR ---
AM ASSESSMENT COMPLETE - PT RESTING IN BED AWAKE AND ALERT, SITTING WITH HOB ELEVATED. PT STATES OVERALL SHE FEELS MUCH IMPROVED. REQUESTS CHICKEN BROTH FOR BREAKFAST - MONITORING FOR INCREASED NAUSEA WITH MEALS. PT REPORTS PASSING GAS - ABD LESS DISTENDED, NO NEW OR WORSENING BRUISING NOTED. MOTHER AT BEDSIDE.
[2025-03-14] MEDS ORDERED: POTASSIUM CHLORIDE 40 MEQ in DEXTROSE 5% 250 ML IV ONE (09:00)
--- NOTE | 2025-03-14 09:45 | NUR ---
PT TOLERATING BROTH SIPS WITHOUT INCREASE NAUSEA. PT REQUESTS PAIN MEDICATION FOR 5/10 PAIN ACROSS UPPER ABD. CIWA SCORE CURRENTLY 3 BUT PT STATES SHE FEELS LIKE SHE NEEDS PRN DOSE LIBRIUM-ADMINISTERED.
--- NOTE | 2025-03-14 10:11 | NUR ---
DISCHARGE REVIEW: MONITOR LABS, MONITOR FOR SIGNS OF BLEEDING, IV MEDS, IV ANTIBIOTICS, IV ANALGESICS, CIWA PROTOCOL PLAN TO DC TO HOME WHEN MEDICALLY STABLE ADD: 03/15-03/16/2025
--- NOTE | 2025-03-14 11:25 | NUR ---
PT RESTING IN BED WATCHING TV. RATES PAIN IMPROVED TO 3/10 AND REPORTS ANXIETY/WITHDRAWL SYMPTOMS IMPROVED AFTER PRN LIBRIUM DOSE. NEW ICE PACK PROVIDED. VS STABLE ON MONITOR. PT CONTINUES TO SIP ON BROTH AND NOT REPORT INCREASE IN PAIN OR NAUSEA.
--- NOTE | 2025-03-14 11:34 | NUR ---
INTO SEE PATIENT. PATIENT STATES SHE IS FEELING BETTER THAN YESTERDAY. PATIENT LIVES AT HOME WITH HER TWO KIDS AND FATHER LIVES THERE WELL. HE IS ABLE TO SUPPORT HER AT TIME OF DISCHARGE. NO FUTHER CM NEEDS AT THIS TIME.
--- NOTE | 2025-03-14 12:04 | NUR ---
PT RESTING IN BED WITH EYES CLOSED, RR EVEN AND UNLABORED. CALL LIGHT IN REACH.
--- NOTE | 2025-03-14 13:45 | NUR ---
PT ASSISTED UP TO CHAIR FROM BED STANDBY FOR LINE/TUBE MANAGMENT. PT ANXIOUS ABOUT MOVING POST OPERATIVLY. 9/ PAIN REPORTED STATES "MEDICATION THE OTHER NURSE GAVE ME DID NOT DO ANYTHING". 2MG MORPHINE ADMINISTERED TO TITRATE TO MAX DOSE. ICE PACK PROVIDED. REPORTS SOME DIZZINESS WITH STANDING, HR ELEVATED TO 140'S WITH MOVEMENT TO CHAIR. PT NOTED TO HAVE INCREASE IN ANXIETY AND MORE VISIBLE TREMOR. MOOD LABILE WITH TEARS NOTED FREQUENTLY. LIBRIUM DOSE ADMINISTERED PER EMAR. LUNCH TRAY PROVIDED - DENIES NAUSEA OR INCREASE PAIN WITH CLEAR LIQS. ABD SOFT AND NO CHANGES IN BRUISING. BRUISE TO RIGHT LOWER FLANK AREA ON BACK NOTED WITH AMBULATION OUT OF BED, PT DENIES INJURY TO THIS AREA. PT PROVIDED CALL LIGHT, MOM SITTING AT SIDE.
--- NOTE | 2025-03-14 14:20 | NUR ---
RAPID RESPONSE CALLED AFTER FINDING PT LAYING AT FOOT OF BED ASSISTED ON FLOOR. MOTHER AT BEDSIDE CALLED TO HALLWAY FOR HELP TO WHICH THIS RN, INTELLIGENCE CLERK AND CCU RN RESPONDED. PT NOTED TO BE PALE, DIAPHORETIC, ABLE TO SPEAK AND ORIENTED BUT DROWSY, BODY LIMP. INITIAL VS NEGATIVE FOR CONCERN, SP02 STABLE ON ROOM AIR. CBG 134. LABS AND CXR OBTAINED, ORDERED BY MD AT BEDSIDE. ABD UNCHANGED FROM PRIOR ASSESSMENT. PT STATES "I DONT KNOW" WHEN ASKED IF SHE HIT HER ABD ON THE WAY TO THE BED. WHEN ASKED WHAT OCCURED PT STATES SHE FELT LIKE SHE WAS GOING TO "PASS OUT" IN CHAIR SO SHE STOOD AND ATTEMPTED TO WALK TO BED. PTS MOTHER STATES SHE ASSISTED HER DOWN TO BED ONCE PT BECAME WEAK WITH STANDING. PT TEARFUL AND STATES SHE KNEW SHE WAS ASKED TO PUSH CALL LIGHT AND ASK FOR HELP. PT CRYING ABOUT STRESS WITH CHILDREN AT HOME, FEAR OF DYING. MD UPDATED ON CURENT CIWA ASSESSMENTS AND DOSING. PT NOW RESTING LAYING FLAT IN BED WITH BED ALARM ON, DOOR AND CURTAIN OPEN TO RN STATION, MOTHER AT BEDSIDE.
--- NOTE | 2025-03-14 14:24 | NUR ---
RSPONDED TO RAPID RESPONSE ACTIVATION. PT NOT AVAILABLE FOR VISIT. TALKED WITH MOTHER IN WAITING ROOM. MOTHER EXPRESSED SITUATIONALLY CONSISTENT EMOTIONS, TEARFUL, WORRIED. APPLICATION INTEGRATION ARCHITECT PROVIDED SUPPORTIVE PRESENCE, ANXIETY CONTAINMENT, LISTENED EMPATHETICALLY, PROVIDED PRAYER. MOTHER APPEARED LESS ANXIOUS, EXPRESSED GRATITUDE.
[2025-03-14 14:25] LABS: BASOPHILS 0.7 % (0.1-1.2); EOSINOPHILS 0.8 % (0.7-5.8); LYMPHOCYTES 36.4 % (19.3-51.7); MCH 32.2 PG (25.6-32.2); MCHC 34.9 g/dL (32.2-35.5); MCV 92.4 fL (79.4-94.8); MONOCYTES 6.5 % (4.7-12.5); NEUTROPHILS 54.6 % (34.0-71.1); RBC 2.76 M/uL (3.93-5.22)
[2025-03-14 14:42] LABS: ALT (SGPT) 36.0 U/L (14-59); AST (SGOT) 41.0 U/L (15-37); GLOMERULAR FILTRATION RATE,EST 96.0 mL/min (>60); PROTEIN, TOTAL 6.2 g/dL (6.4-8.2); UREA NITROGEN 3.0 mg/dL (7-18)
[2025-03-14] MEDS ORDERED: SODIUM CHLORIDE 0.9% 1,000 ML IV SCH (15:00)
--- NOTE | 2025-03-14 15:28 | NUR ---
RESPONDED EARLIER TO A RAPID RESPONSE TEAM. PATIENT AT ENF OF BED AND WAS PALE. POSSIBLE SYNCOPAL EPISODE. I STOPPED BY THIS AFTERNOON AND SHE WAS TEARFUL BECAUSE SHE FEELS VERY TIRED AND CAN'T SLEEP WITH DOOR OPEN. LEADER TIER WAS IN ROOM TO DO AN IV AND I PASSED ON HER CONCERN AND HER REQUEST FOR THE DOOR TO BE CLOSED.
--- NOTE | 2025-03-14 16:02 | NUR ---
PT RESTING FLAT IN BED ALERT AND ORIENTED, CALM. PT RATES PAIN 2/10 IN HER ABD. PT DENIES NAUSEA - STATES "I JUST FEEL GUILTY FOR EARLIER". VS STABLE ON MONITOR. CALL LIGHT IN REACH, BED ALARM ON.
[2025-03-14] MEDS ORDERED: DEXTROSE 5% - NACL 0.9% 1,000 ML IV SCH (18:30)
[2025-03-14] MEDS ORDERED: POTASSIUM CHLORIDE 10 MEQ TABCR PO ONE ×2 (18:30→21:00)
--- NOTE | 2025-03-14 18:45 | NUR ---
PT RESTING IN BED WITH HOB ELEVATED, CHILDREN AND MOM VISITING IN ROOM. HR ELEVATED BUT APPEARS CALM. PT DENIES NEEDING ANY PAIN COVERAGE AND REQUESTS TO TAKE TYLENOL LATER THIS EVENING. NEW ICE PACK PROVIDED. PT CONTINUES TO DENY NAUSEA WITH CLEAR LIQS. ABD REMAINS SOFT AND NOT DISTENDED. CALL LIGHT IN REACH.
--- NOTE | 2025-03-14 19:45 | NUR ---
handoff report received from RISHI Lorenzo. all questions answered. patient resting in bed. vital signs stable. call light in reach
--- NOTE | 2025-03-14 20:35 | NUR ---
PATIENT ASSESSMENT COMPLETE. PATIENT RESTING IN BED. PATIENT ALERT AND CALM. PATIENT DENIES FEELING ANXIOUS AT THIS TIME. PATIENT IN SINUS TACH, HR 100'S-120'S. RR EVEN AND UNLABORED, LUNG SOUNDS CLEAR. ABDOMEN APPEARS MILDY DISTENDED. X3 LAP SITES INTACT, BRUISING NOTED AROUND ALL LAP SITES. PATIENT REPORTS ABDOMINAL TENDERNESS AND RATES PAIN 2/10. PATIENT DENIES NAUSEA. BOWEL TONES ACTIVE. BARROW INTACT, AND DRAINING CLEAR, YELLOW URINE. IV SITES INTACT, IVF RUNNING PER EMAR. PATIENT DENIES JAIN AND HALLUCINATIONS AT THIS TIME. SCDS ON. VITAL SIGNS STABLE. CALL LIGHT IN REACH. BED ALARM ON.
--- NOTE | 2025-03-14 21:30 | NUR ---
dr rivera rounding on unit. discussed melatonin to help patient sleep, per patient request. new order received, entered by .
[2025-03-14] MEDS ORDERED: MELATONIN 3 MG TAB PO SCH (21:46)
--- NOTE | 2025-03-14 22:20 | NUR ---
IN PATIENT ROOM FOR ABX ADMINISTRATION. PATIENT IV FLUIDS INFUSING PER EMAR. IV SITES WNL. PATIENT PROVIDED WITH FRESH ICE PACK. PATIENT DENIES FEELING NAUSEOUS. PATIENT RATES PAIN 1/10 IN HER ABDOMEN. NO FURTHER NEEDS AT THIS TIME. CALL LIGHT IN REACH.
--- NOTE | 2025-03-14 23:56 | NUR ---
PATIENT RESTING IN BED WITH EYES CLOSED, RR 18. NO SIGNS OF ACUTE DISTRESS NOTED. PATIENT REMAINS ON ROOM AIR, SPO2 96%. PATIENT VITAL SIGNS STABLE. CALL LIGHT IN REACH.
[2025-03-15] VITALS (12 sets, daily range): BP systolic 99–135; BP diastolic 73–105
--- NOTE | 2025-03-15 00:20 | NUR ---
PATIENT RESTING IN BED. RR EVEN AND UNLABORED. ABDOMEN VISUALIZED. X3 LAP SITES INTACT. IV SITES INTACT, IVF ANF IV ABX RUNNING PER EMAR. VITAL SIGNS STABLE. PATIENT PROVIDED PO FLUIDS PER REQUEST. CALL LIGHT IN REACH. BED ALARM ON
--- NOTE | 2025-03-15 01:05 | NUR ---
call light answered. patient requesting warm blanket. warm blanket provided. abdomen visualized. no new changes at this time. patient denies nausea. vital signs stable. call light in reach.bed alarm on
--- NOTE | 2025-03-15 02:54 | NUR ---
PATIENT RESTING IN BED W/ EYES CLOSED. RR EVEN AND UNLABORED. VITAL SIGNS STABLE. NO EVIDENCE OF ACUTE DISTRESS. CALL LIGHT IN REACH, BED ALARM ON.
--- NOTE | 2025-03-15 03:35 | NUR ---
PATIENT CALL LIGHT ANSWERED. PATIENT C/O 5/10 ABDOMINAL PAIN AFTER COUGHING. PRN PAIN MEDICATION ADMINISTERED PER EMAR. PATIENT PROVIDED PO FLUIDS AND JELLO. IV SITES INTACT. IVF RUNNING PER EMAR. ABDOMEN ASSESSED, NO NEW CHANGES AT THIS TIME. BARROW CATH INTACT, BARROW CARE COMPLETE. NO FURTHER NEEDS. CALL LIGHT IN REACH, BED ALARM ON.
[2025-03-15 05:18] LABS: BASOPHILS 0.6 % (0.1-1.2); EOSINOPHILS 1.6 % (0.7-5.8); LYMPHOCYTES 34.3 % (19.3-51.7); MCH 32.2 PG (25.6-32.2); MCHC 35.3 g/dL (32.2-35.5); MCV 91.2 fL (79.4-94.8); MONOCYTES 6.2 % (4.7-12.5); NEUTROPHILS 56.2 % (34.0-71.1); RBC 2.27 M/uL (3.93-5.22)
[2025-03-15 05:37] LABS: GLOMERULAR FILTRATION RATE,EST 117.0 mL/min (>60); UREA NITROGEN 2.0 mg/dL (7-18)
[2025-03-15 05:41] LABS: PHOSPHORUS, INORGANIC 1.7 mg/dL (2.5-4.9)
--- NOTE | 2025-03-15 06:33 | NUR ---
DR rivera called and reviewed AM lab results and provided update on patient. no new orders at this time.
--- NOTE | 2025-03-15 06:45 | NUR ---
THIS RN AND EBONY RN IN ROOM. IV ABX INFUSING PER EMAR. PATIENT RESTING IN BED. RR EVEN AND UNLABORED. PATIENT DENIES FEELING LIGHTHEADED, DIZZY, OR NAUSEATED AT THIS TIME. PATIENT DENIES JAIN. PATIENT RATES ABDOMINAL PAIN /. ABDOMEN VISUALIZED. X3 LAP SITES INTACT AND CONTINUES TO HAVE BRUISING AROUND LAP SITES; NO ACUTE CHANGES NOTED. IV SITES INTACT. BARROW INTACT. PATIENT UPDATED ON POC. PATIENT DENIES ANY NEEDS. VITAL SIGNS STABLE; NO EVIDENCE OF ACUTE DISTRESS AT THIS TIME. CALL LIGHT IN REACH. BED ALARM ON.
--- NOTE | 2025-03-15 08:45 | NUR ---
AM ASSESSMENT COMPLETE - PT RESTING IN BED WATCHING TV EATING FULL LIQ TRAY. PT DENIES PAIN AND ANXIETY. STATES SHE "FEELS 100% BETTER TODAY". PT EXCITED TO GET UP TO CHAIR AND PULL BARROW CATH, REQUESTS A SHOWER. ABD SOFT AND NON DISTENDED - BRUISING NOT SIGNIFICANTLY WORSE. PT PASSING GAS. CALL LIGHT IN REACH AND BED ALARM ON.
[2025-03-15] MEDS ORDERED: POTASSIUM PHOSPHATE 30 MMOL in DEXTROSE 5% 500 ML IV ONE (09:00)
--- NOTE | 2025-03-15 09:25 | NUR ---
Burden catheter removed, cath tip intact. Patient tolerated well. Patient assisted to chair, alarm intact. Patient instructed to call if she has any needs, she reports her understanding.
[2025-03-15] MEDS ORDERED: DEXTROSE 5% 1,000 ML IV SCH (10:00)
--- NOTE | 2025-03-15 10:34 | NUR ---
RN IN ROOM TO ROUND - PT UP IN CHAIR, NOTIFIED THAT MD WOULD LIKE TO WAIT FOR REGULAR DIET UNTIL 1100 LABS ARE REVIEWED. PT STATES UNDERSTANDING. STATES SHE IS VERY HUNGRY. PER REPORT FROM OTHER RN PT HAD SOFT BROWN BM AND VOID WITHOUT DIFFICULTY POST BARROW DC. MOTHER IN ROOM. CHAIR ALARM ON.
[2025-03-15 11:00] LABS: BASOPHILS 0.7 % (0.1-1.2); EOSINOPHILS 1.6 % (0.7-5.8); LYMPHOCYTES 29.0 % (19.3-51.7); MCH 32.1 PG (25.6-32.2); MCHC 35.1 g/dL (32.2-35.5); MCV 91.6 fL (79.4-94.8); MONOCYTES 6.5 % (4.7-12.5); NEUTROPHILS 61.0 % (34.0-71.1); RBC 2.49 M/uL (3.93-5.22)
[2025-03-15 11:09] LABS: GLOMERULAR FILTRATION RATE,EST 119.0 mL/min (>60); UREA NITROGEN 1.0 mg/dL (7-18)
--- NOTE | 2025-03-15 12:45 | NUR ---
PT USES CALL LIGHT TO REQUEST ASSISTANCE TO BATHROOM. SBA FOR LINE MANAGMENT. PT STEADY ON FEET, INCREASE HR TO 130'S WITH MOVEMENT. PT DENIES DYSURIA. BACK TO BED WITH LUNCH TRAY ON TABLE IN FRONT OF PT. BED ALARM ON. PT REQUESTS TYLENOL FOR 2/10 PAIN - ADMINISTERED. CIWA SCORE CURRENTLY 4, NOTABLE FOR TREMOR AND ANXIETY, PT DENIES WANTING LIBRIUM AT THIS TIME.
--- NOTE | 2025-03-15 13:30 | NUR ---
PT REMAINS DROWSY BUT EASILY AWAKES, ORIENTED. SPO2 STABLE ON 2L NC. PT REQUESTS FOOD AND DRINK. VERIFIED WITH MD [place]. PT PASSED BEDSIDE SWALLOW WITHOUT DIFFICULTY. WATER AND PUDDING PROVIDED. PT ABLE TO FEED SELF.
--- NOTE | 2025-03-15 15:00 | NUR ---
PT ASSISTED UP TO THE SHOWER TO WASH. PT ABLE TO PREFORM MOST SELF CARES HERSELF WITHOUT DIFFICULTY. HR ELEVATES TO 140'S WITH ACTIVITY BUT PT DENIES SYMPTOMS. CLEAN LINENS PLACED. TEETH BRUSHED. PT BACK TO BED WITH CALL LIGHT AND TABLE AT SIDE. REGULAR DIET FOR LUNCH DID NOT PRODUCE INCREASE ABD PAIN OR NAUSEA.
[2025-03-15 15:11] LABS: GLOMERULAR FILTRATION RATE,EST 116.0 mL/min (>60); UREA NITROGEN 2.0 mg/dL (7-18)
[2025-03-15] MEDS ORDERED: FERROUS SULFATE 325 MG TAB PO SCH (17:00)
--- NOTE | 2025-03-15 17:08 | NUR ---
PT NOW MS STATUS - PT STATES UNDERSTANDING AND AGREES WITH PLAN OF CARE.
--- NOTE | 2025-03-15 18:45 | NUR ---
PT ASSISTED UP TO BATHROOM TO VOID, REMAINS STEADY ON FEET WITH HR ELEVATED. VS STABLE ONCE BACK TO BED. PT DENIES NEED FOR PAIN MEDICATION AT THIS TIME. CHICKEN SANDWHICH FOR DINNER DID NOT INDUCE PAIN OR NAUSEA. CIWA NEGATIVE AT THIS TIME. CALL LIGHT IN REACH.
[2025-03-15 19:12] LABS: GLOMERULAR FILTRATION RATE,EST 117.0 mL/min (>60); UREA NITROGEN 1.0 mg/dL (7-18)
--- NOTE | 2025-03-15 19:45 | NUR ---
SHIFT REPORT RECEIVED. PATIENT RESTING IN BED. CALL LIGHT IN REACH. DENIES NEEDS.
--- NOTE | 2025-03-15 20:00 | NUR ---
PATIENT UP TO THE BATHROOM. WALKS INDEPENDENTLY; STEADY ON FEET. PATIENT VOIDED AND RETURNED TO BED. REQUEST TYLENOL AND MELATONIN FOR BED.
--- NOTE | 2025-03-15 21:00 | NUR ---
MEDS PROVIDED PER ORDER. PATIENT HAS MINIMAL PAIN AT LAP SITES. ABD IS MILDLY DISTENDED. LAP SITES BRUSING UNCHANGED. BOWEL SOUNDS ACTIVE. PATIENT DENIED NAUSEA. IV SITE WNL; SL. VS STABLE. TACHY UP TO THE 120'S WITH AMBULATION. PATIENT NONSYMPTOMATIC. NO OTHER NEEDS AT THIS TIME. LIGHTS DIMMED. CALL LIGHT IN REACH.
--- NOTE | 2025-03-15 23:30 | NUR ---
PATIENT UP TO THE BATHROOM INDEPENDENTLY. RN CHECKED ON PATIENT; SHE DENIES ANY NEEDS.
--- NOTE | 2025-03-16 02:00 | NUR ---
PATIENT APPEARS RESTFUL IN BED. EYES CLOSED. HR 80'S; RR 16. CALL LIGHT IN REACH.
--- NOTE | 2025-03-16 05:00 | NUR ---
LAB IN ROOM FOR MORNING DRAW.
[2025-03-16 05:16] LABS: BASOPHILS 0.3 % (0.1-1.2); EOSINOPHILS 2.6 % (0.7-5.8); LYMPHOCYTES 39.5 % (19.3-51.7); MCH 31.6 PG (25.6-32.2); MCHC 34.2 g/dL (32.2-35.5); MCV 92.6 fL (79.4-94.8); MONOCYTES 6.4 % (4.7-12.5); NEUTROPHILS 50.5 % (34.0-71.1); RBC 2.56 M/uL (3.93-5.22)
[2025-03-16 05:33] LABS: ALT (SGPT) 29 U/L (14-59); AST (SGOT) 23 U/L (15-37); GLOMERULAR FILTRATION RATE,EST 120 mL/min (>60); PHOSPHORUS, INORGANIC 3.6 mg/dL (2.5-4.9); PROTEIN, TOTAL 5.8 g/dL (6.4-8.2); UREA NITROGEN 1 mg/dL (7-18)
--- NOTE | 2025-03-16 06:00 | NUR ---
PATIENT UP TO VOID INDEPENDENTLY. REPORTS GOING TO THE BATHROOM SEVERAL TIMES LAST NIGHT WHICH IS HER NORMAL. PATIENT DENIED PAIN OR GI UPSET. VS STABLE. LAP SITES UNCHANGED. ABD SOFT; NONTENDER. BOWEL SOUNDS ACTIVE. PATIENT ORDERED HER BREAKFAST AND IS IN GOOD SPIRITS.
[2025-03-16 06:15] VITALS: BP 143/95
[2025-03-16 08:30] VITALS: BP 153/101
[2025-03-16] MEDS ORDERED: PANTOPRAZOLE SODIUM 40 MG TABEC PO SCH (09:00)
[2025-03-16] MEDS ORDERED: POTASSIUM CHLORIDE 10 MEQ TABCR PO ONE (09:00)
[2025-03-16 09:24] LABS: CHOLESTEROL/HDL RATIO 2.8; LDL CHOLESTEROL 73.0 mg/dL (< 129); NON-HDL CHOLESTEROL 91.0; VLDL CHOLESTEROL 17.0
[2025-03-16] MEDS ORDERED: NITROFURANTOIN MONOHYD MACROCR 100 MG CAP PO SCH (09:30)
--- NOTE | 2025-03-16 09:46 | NUR ---
PT ALERT IN BED FINISHED WITH BREAKFAST. DENIES PAIN AND NAUSEA THIS AM. UP TO BATHROOM TO VOID, SOFT BM WITHOUT DIFFICULTY. VS STABLE. PT ANTICIPATING DC HOME TODAY, AGREES TO PLAN. CALL LIGHT IN REACH.
[2025-03-16] MEDS ORDERED: NITROFURANTOIN100 M1 PO (10:23)
[2025-03-16] MEDS ORDERED: VITAMIN B-1100 M1 PO (11:16)
--- NOTE | 2025-03-18 09:23 | PATH ---
[facility] [address] [place], [place] [address] Signed SPECIMEN(S): A APPENDIX SPECIMEN SOURCE: A. APPENDIX CLINICAL HISTORY: Acute appy. Abdominal pain FINAL PATHOLOGIC DIAGNOSIS: Appendix, appendectomy: - Appendix with no significant histopathologic change [facility] MICROSCOPIC EXAMINATION: Histologic sections of all submitted blocks are examined by light microscopy. These findings, together with the gross examination, support the pathologic diagnosis. GROSS DESCRIPTION: The specimen, labeled and designated "sandra Dawkins," is received in formalin and consists of Specimen: Appendix with mesoappendix. Dimensions: 8.5 x 0.6 cm. Serosa: [place]-sanches, smooth. Defect: Not grossly identified. Inking: Staple line is inked Blue. Mucosa: 0.2 cm, guadarrama. Fecalith: Not grossly identified. Additional: None. Coach Mechanic sections are submitted in (A1). TO (under the direct supervision of a pathologist) The Gross Description was prepared using a voice recognition system. The report was reviewed for accuracy; however, sound-alike word errors, addition and/or deletions may occur. If there is any question about this report, please contact Client Services. ADDITIONAL NOTES: Immunohistochemical and/or in situ hybridization studies if performed in this case included appropriate positive controls that reacted as expected. This test was developed and its performance characteristics determined by [facility]. It has not been cleared or PATIENT NAME: JENNY DAWKINS PATHOLOGY DATE OF : 88 REPORT #: [id number] PHYSICIAN: BELKYS ENAMORADO PCP: KINGSLEY MILIAN PAC REPORT IS CONFIDENTIAL AND NOT TO BE RELEASED WITHOUT AUTHORIZATION [facility] [address] [place], [place] [address] Signed approved by the U.S. Food and Drug Administration. The FDA has determined that such clearance or approval is not necessary. This test is used for clinical purposes. It should not be regarded as investigational or for research. [facility] is certified under the Clinical Laboratory Improvement Amendments of 1988 (CLIA) as qualified to perform high complexity clinical laboratory testing. PERFORMING LABORATORY: Technical preparation was performed by [facility], [address] [place] [address] (CLIA#: [id number]). Professional interpretation was performed by - [facility]- [facility] [address] [address] (CLIA#: [id number]). Diagnostician: James Villatoro DO Pathologist Electronically Signed 03/18/2025 Copies: ~ PATIENT NAME: JENNY DAWKINS PATHOLOGY DATE OF : [birth year] REPORT #: [id number] PHYSICIAN: BELKYS PATHOLOGY PCP: KINGSLEY MILIAN PAC REPORT IS CONFIDENTIAL AND NOT TO BE RELEASED WITHOUT AUTHORIZATION
== END 2025-03-16 12:45 | disposition home or self-care (01) | DRG 397 ==
LOC: ED 08:12 → MS 11:18 → CCU 11:18
PROVIDERS: Emergency Medicine; Family Medicine; Surgery; ADMIT Internal Medicine; ATTEND Internal Medicine
PROC: 0DTJ4ZZ Resection of Appendix, Percutaneous Endoscopic Approach (ICD-10-PCS; principal; 2025-03-12 19:07)
PROC: 0W3H4ZZ Control Bleeding in Retroperitoneum, Percutaneous Endoscopic Approach (ICD-10-PCS; 2025-03-13)
PROC: 30233K1 Transfusion of Nonautologous Frozen Plasma into Peripheral Vein, Percutaneous Approach (ICD-10-PCS; 2025-03-13)
PROC: 30233N1 Transfusion of Nonautologous Red Blood Cells into Peripheral Vein, Percutaneous Approach (ICD-10-PCS; 2025-03-13)
DX: K35.80 Unspecified acute appendicitis (principal); K85.20 Alcohol induced acute pancreatitis without necrosis or infection; R57.8 Other shock; E87.1 Hypo-osmolality and hyponatremia; N39.0 Urinary tract infection, site not specified; F10.139 Alcohol abuse with withdrawal, unspecified; E87.6 Hypokalemia; E83.39 Other disorders of phosphorus metabolism; K44.9 Diaphragmatic hernia without obstruction or gangrene; D64.9 Anemia, unspecified; F32.A Depression, unspecified; Z79.899 Other long term (current) drug therapy; Z90.49 Acquired absence of other specified parts of digestive tract
CPT/HCPCS: 00790; 00840; 36415; 36592; 71045; 74176; 74177; 80048; 80053; 80061; 81001; 82150; 82247; 83690; 83735; 84100; 84132; 84484; 84703; 85025; 85610; 86850; 86900; 86901; 86922; 87077; 87088; 88304; 93005; 93010; 94799; 96361; 96374; 96375; 99285-25; A9270; J0131; J0330; J1100; J1171; J1644; J1885; J2003; J2060; J2250; J2270; J2371; J2405; J2470; J2543; J2704; J3010; J3475; J3480; J3490; J7030; J7042; J7060; J7070; J7121; P9016; P9059

== ENCOUNTER 2025-03-28 08:23 | Emergency (ER) | payer OTHER ==
[~2025-03-28] VITALS: Ht 175.3 cm; Wt 79.5 kg
[~2025-03-28 08:23] MED LIST changes: +HYDROXYZINE HCL50 MG PO; +NITROFURANTOIN100 M1 PO; +VITAMIN B-1100 M1 PO
--- OUTSIDE RECORDS SUMMARY | 2025-03-28 08:30 | XMS ---
PreManage Notification: JENNY DAWKINS Security Taker Away Events No recent Security Events currently on file CRITERIA MET - [facility] - 2 Visits in 30 Days CARE PROVIDERS -, [facility] Dentist: Business Controller [facility] PHONE: [phone] -, Mariah- Dentist: Business Controller [facility] PHONE: [phone] Sharmila Hankins Physician [employer] Raiza PIÑA PHONE: [phone] Nehemias has no Care Guidelines for this patient. E.D. VISIT COUNT (12 MO.) 3 DAYANNA Thakkar TOTAL 3 NOTE: Visits indicate total known visits. ED/UCC VISIT TRACKING (12 MO.) 03/28/2025 08:24 [facility] [place] TYPE: Emergency COMPLAINT: - RT ARM NUMBNESS 03/12/2025 08:13 [facility] [place] TYPE: Emergency COMPLAINT: - VOMITING 07/25/2024 17:17 [facility] [place] TYPE: Emergency COMPLAINT: - MULTIPLE COMPLAINTS DIAGNOSES: - Alcohol abuse with withdrawal, unspecified - Alcohol dependence with withdrawal, unspecified - Other long term care social worker (current) drug therapy INPATIENT VISIT TRACKING (12 MO.) 03/12/2025 11:18 [facility] TYPE: Critical Care COMPLAINT: - ABDOMINAL PAIN DIAGNOSES: - Acquired absence of other specified parts of digestive tract - Acquired absence of other specified parts of digestive tract - Acute pancreatitis without necrosis or infection, unspecified - Alcohol abuse with withdrawal, unspecified - Alcohol abuse with withdrawal, unspecified - Alcohol induced acute pancreatitis without necrosis or infection - Alcohol induced acute pancreatitis without necrosis or infection - Anemia, unspecified - Anemia, unspecified - Depression, unspecified - Depression, unspecified - Diaphragmatic hernia without obstruction or gangrene - Diaphragmatic hernia without obstruction or gangrene - Hypo-osmolality and hyponatremia - Hypo-osmolality and hyponatremia - Hypokalemia - Hypokalemia - Other disorders of phosphorus metabolism - Other disorders of phosphorus metabolism - Other long term care social worker (current) drug therapy - Other nursing home (current) drug therapy - Other shock - Other shock - Unspecified acute appendicitis - Unspecified acute appendicitis - Urinary tract infection, site not specified - Urinary tract infection, site not specified [email or web address]
[2025-03-28 09:15] VITALS: BP 138/95
== END 2025-03-28 09:15 | disposition home or self-care (01) ==
LOC: ED 08:23
DX: R20.2 Paresthesia of skin (principal); Z86.718 Personal history of other venous thrombosis and embolism; Z90.49 Acquired absence of other specified parts of digestive tract; Z79.899 Other long term (current) drug therapy
CPT/HCPCS: 99283-25